=== PATIENT | male | born 1990 | race Caucasian/White ===

== ENCOUNTER 2017-08-21 00:13 | Emergency (ER) | payer SELFPAY ==
[~2017-08-21] VITALS: Ht 175.3 cm; Wt 66.0 kg
--- NOTE | 2017-08-21 00:20 | ERD ---
ER Documentation Chief Complaint Date/Time DATE: 08/21/17 TIME: 00:18 Chief Complaint HPI This is a 27-year-old male presents to the ER for evaluation of meth use. He denies homicidal suicidal ideation. The patient was brought in because a "good [employer]" called [id number]. The patient is not giving me any history and states that he would like to go home ROS All systems reviewed and are negative except as per history of present illness. Physical Exam Physical Exam Const: No acute distress Head: Atraumatic Eyes: Normal Conjunctiva ENT: Normal External Ears, Nose and Mouth. Neck: Full range of motion..~ No meningismus. Resp: Clear to auscultation bilaterally Cardio: Regular rate and rhythm, no murmurs Abd: Soft, non tender, non distended. Normal bowel sounds Skin: No petechiae or rashes Back: No midline or flank tenderness Ext: No cyanosis, or edema Neur: Awake and alert Psych: Normal Mood and Affect Procedures/MDM This 27-year-old male presents to the ER for evaluation of meth use. The patient is not homicidal, not suicidal. He will be discharged at this time Departure Diagnosis: Primary Impression: Methamphetamine abuse Condition: Stable NATY RUBIN DO Aug 21, 2017 00:20
[2017-08-21 00:23] VITALS: Ht 175.3 cm; Wt 66.0 kg
== END 2017-08-21 07:39 | disposition home or self-care (01) ==
LOC: E/R 00:13
DX: F15.10 Other stimulant abuse, uncomplicated (principal)
CPT/HCPCS: 99282